=== PATIENT | male | born 1945 ===

== ENCOUNTER → 2021-01-31 | Outpatient (CLI) | payer MEDICARE ==
[~2021-01-31] MED LIST: CYCL10TA2 PO; DULO20CA45 PO; ESCI10TA10 PO; FINA5TAB4 PO; HYDR-2214 PO; TAMS-11 PO
[2021-01-31 09:42] LABS: BASOPHILS % (AUTO) 1 % (0-1); EOSINOPHILS % (AUTO) 3 % (1-7); LYMPHOCYTES % (AUTO) 19 % (22-44); MEAN CORPUSCULAR HEMOGLOBIN 33.6 pg (27.5-34.5); MEAN CORPUSCULAR HGB CONC 34.6 g/dL (33.2-36.2); MEAN PLATELET VOLUME 8.1 fL (7.4-10.4); MONOCYTES % (AUTO) 9 % (2-9); NEUTROPHILS % (AUTO) 67 % (42-75); PLATELET COUNT 174 x10^3/uL (130-400); RED BLOOD COUNT 4.65 x10^6/uL (4.38-5.82); RED CELL DISTRIBUTION WIDTH 13.4 % (9.4-14.8)
[2021-01-31 09:44] LABS: MD NO
[2021-01-31 09:51] LABS: ANION GAP 4 mmol/L (5-15); CALCIUM 9.1 mg/dL (8.5-10.1); CHLORIDE 110 mmol/L (98-107); CREATININE 1.02 mg/dL (0.7-1.3)
[2021-01-31 09:54] LABS: MICROSCOPIC AUTO
[2021-01-31 10:08] LABS: INTERNATIONAL NORMALIZED RATIO 1.04 (0.93-1.1); PROTHROMBIN TIME 11.1 Seconds (9.6-11.5)
== END | disposition home or self-care (01) ==
LOC: STAR 08:24
PROVIDERS: ATTEND Urology
DX: Z01.818 Encounter for other preprocedural examination (principal); N32.89 Other specified disorders of bladder; Z20.822 Contact with and (suspected) exposure to COVID-19
CPT/HCPCS: 36415; 80048; 81001; 85025; 85610; 85730; 87086; 93005; U0003

== ENCOUNTER 2021-02-04 12:31 | Day surgery (SDC) | payer MEDICARE ==
[~2021-02-04] VITALS: Ht 180.3 cm; Wt 77.0 kg
[~2021-02-04 12:31] MED LIST changes: +CEFAZOLIN 1,000 MG ONE; +DEXAMETHASONE 4 MG/ML, 1ML ONE; +GEMCITABINE HCL 1,000 MG in SODIUM CHLORIDE 0.9% 23.7 ML IS ONE; +ONDANSETRON 2MG/ML, 2ML ONE; +PROPOFOL 10 MG/ML, 20ML ONE; +SUCCINYLCHOLINE 20 MG/ML, 10ML ONE
[2021-02-04 12:50] VITALS: BP 142/80
[2021-02-04] MEDS ORDERED: ATOR40TA78 PO (12:56)
[2021-02-04] MEDS ORDERED: CYAN25003 PO (12:56)
[2021-02-04] MEDS ORDERED: MULT-464 PO (12:56)
[2021-02-04] MEDS ORDERED: ZOLP10TA PO (12:56)
[2021-02-04] MEDS ORDERED: CHLORHEXIDINE 15 ML UDC PO ONE (13:00)
[2021-02-04] MEDS ORDERED: LACTATED RINGERS 1,000 ML IV SCH (13:00)
[2021-02-04] MEDS ORDERED: MIDAZOLAM 1 MG/ML, 2ML ONE (13:10)
[2021-02-04] MEDS ORDERED: FENTANYL PF 100 MCG/2ML ONE ×3 (13:10→17:35)
[2021-02-04] MEDS ORDERED: ALBUTEROL SULFATE 2.5 MG/3 ML NPPB PRN (15:30)
[2021-02-04] MEDS ORDERED: MEPERIDINE/PF 25MG/0.5ML IVPush PRN (15:30)
[2021-02-04] MEDS ORDERED: OXYcodone 5 MG/5 ML ORAL.SOL UDC PO PRN (15:30)
[2021-02-04] MEDS ORDERED: LABETALOL 5MG/ML, 20ML IV PRN (15:30)
[2021-02-04] MEDS ORDERED: METOCLOPRAMIDE 5 MG/ML, 2ML IV PRN (15:30)
[2021-02-04] MEDS ORDERED: KETOROLAC 30 MG/1 ML IV PRN (15:30)
[2021-02-04] MEDS ORDERED: ONDANSETRON 2MG/ML, 2ML IVPush PRN (15:30)
[2021-02-04] MEDS ORDERED: DIAZEPAM 5 MG/ML, 2ML IV PRN ×2 (15:30)
[2021-02-04] MEDS ORDERED: PROMETHAZINE 25 MG/ML, 1ML IV PRN (15:30)
[2021-02-04] MEDS ORDERED: hydrALAzine 20 MG/ML, 1ML IV PRN (15:30)
[2021-02-04] MEDS ORDERED: OMNIPAQUE 350 MG/ML, 50 ML BOTTLE IV ONE (15:45)
[2021-02-04] MEDS ORDERED: GEMCITABINE HCL IS ONE (15:46)
[2021-02-04] MEDS ORDERED: OPIUM/BELLADONNA SUPP.RECT 16.2-60 MG ONE (16:09)
[2021-02-04] MEDS ORDERED: OXYcodone 5 MG/5 ML ORAL.SOL UDC ONE (16:47)
[2021-02-04] MEDS: FENTANYL PF 100 MCG/2ML IV PRN ×3 (16:52→17:37)
[2021-02-04] MEDS ORDERED: HYDROmorphone 1 MG/ML, 1ML INJ ONE (17:03)
[2021-02-04] MEDS: HYDROmorphone 1 MG/ML, 1ML INJ IV PRN ×3 (17:06→17:26)
[2021-02-04] MEDS ORDERED: hydrALAzine 20 MG/ML, 1ML ONE (18:49)
== END 2021-02-04 20:30 | disposition home or self-care (01) ==
LOC: OUT 12:31
PROVIDERS: ATTEND Urology
DX: N32.89 Other specified disorders of bladder (principal); C67.4 Malignant neoplasm of posterior wall of bladder; N30.80 Other cystitis without hematuria; N40.1 Benign prostatic hyperplasia with lower urinary tract symptoms; N13.8 Other obstructive and reflux uropathy; Z79.891 Long term (current) use of opiate analgesic; Z79.899 Other long term (current) drug therapy; Z90.49 Acquired absence of other specified parts of digestive tract
CPT/HCPCS: 52204; 52235; 52332; 52354; 74420; 88305; C1758; C1769; C2617; J0330; J0360; J0690; J1100; J1170; J2250; J2405; J2704; J3010; J7120; Q9967; J9201

== ENCOUNTER 2021-04-22 14:17 | Day surgery (SDC) | payer MEDICARE ==
[~2021-04-22] VITALS: Ht 180.3 cm; Wt 76.1 kg
[~2021-04-22 14:17] MED LIST changes: +ATOR40TA78 PO; -CEFAZOLIN 1,000 MG ONE; +CYAN25003 PO; -DEXAMETHASONE 4 MG/ML, 1ML ONE; -GEMCITABINE HCL 1,000 MG in SODIUM CHLORIDE 0.9% 23.7 ML IS ONE; +MULT-464 PO; -ONDANSETRON 2MG/ML, 2ML ONE; -PROPOFOL 10 MG/ML, 20ML ONE; -SUCCINYLCHOLINE 20 MG/ML, 10ML ONE; +ZOLP10TA PO
[2021-04-22 15:27] VITALS: BP 145/86
[2021-04-22] MEDS ORDERED: LACTATED RINGERS 1,000 ML IV SCH (15:30)
[2021-04-22] MEDS ORDERED: CHLORHEXIDINE 15 ML UDC PO ONE (15:30)
[2021-04-22] MEDS ORDERED: PLEASE ENTER HEIGHT AND WEIGHT MC SCH (15:30)
[2021-04-22 15:56] VITALS: BP 145/86
[2021-04-22 15:59] LABS: BASOPHILS % (AUTO) 1 % (0-1); EOSINOPHILS % (AUTO) 1 % (1-7); LYMPHOCYTES % (AUTO) 15 % (22-44); MEAN CORPUSCULAR HEMOGLOBIN 33.5 pg (27.5-34.5); MEAN CORPUSCULAR HGB CONC 34.6 g/dL (33.2-36.2); MEAN PLATELET VOLUME 8.3 fL (7.4-10.4); MONOCYTES % (AUTO) 6 % (2-9); NEUTROPHILS % (AUTO) 77 % (42-75); PLATELET COUNT 175 x10^3/uL (130-400); RED BLOOD COUNT 4.57 x10^6/uL (4.38-5.82); RED CELL DISTRIBUTION WIDTH 13.7 % (9.4-14.8)
[2021-04-22 16:04] LABS: MICROSCOPIC AUTO
[2021-04-22 16:09] LABS: ANION GAP 9 mmol/L (5-15); CHLORIDE 107 mmol/L (98-107); CREATININE 0.99 mg/dL (0.7-1.3)
[2021-04-22] MEDS ORDERED: OMNIPAQUE 350 MG/ML, 50 ML BOTTLE ONE (18:00)
[2021-04-22] MEDS ORDERED: FENTANYL PF 100 MCG/2ML ONE ×3 (18:17→20:23)
[2021-04-22] MEDS ORDERED: MIDAZOLAM 1 MG/ML, 2ML ONE (18:20)
[2021-04-22] MEDS ORDERED: OPIUM/BELLADONNA SUPP.RECT 16.2-60 MG ONE (19:22)
[2021-04-22] MEDS ORDERED: ROCURONIUM 10MG/ML,5ML ONE (19:30)
[2021-04-22] MEDS ORDERED: DEXAMETHASONE 4 MG/ML, 1ML ONE (19:30)
[2021-04-22] MEDS ORDERED: PROPOFOL 10 MG/ML, 20ML ONE (19:30)
[2021-04-22] MEDS ORDERED: SUCCINYLCHOLINE 20 MG/ML, 10ML ONE (19:30)
[2021-04-22] MEDS ORDERED: ONDANSETRON 2MG/ML, 2ML ONE (19:30)
[2021-04-22] MEDS ORDERED: CEFAZOLIN 1,000 MG ONE (19:30)
[2021-04-22] MEDS ORDERED: GLYCOPYRROLATE 0.2MG/1ML, 5ML ONE (19:30)
[2021-04-22] MEDS ORDERED: NEOSTIGMINE 1 MG/ML, 10ML ONE (19:30)
[2021-04-22] MEDS ORDERED: ALBUTEROL SULFATE 2.5 MG/3 ML NPPB PRN (20:00)
[2021-04-22] MEDS ORDERED: PROMETHAZINE 25 MG/ML, 1ML IV PRN (20:00)
[2021-04-22] MEDS ORDERED: HYDROmorphone 2 MG/ML, 1ML IVPush PRN (20:00)
[2021-04-22] MEDS ORDERED: ACETAMINOPHEN 325 MG TABLET PO PRN (20:00)
[2021-04-22] MEDS ORDERED: LABETALOL 5MG/ML, 20ML IV PRN (20:00)
[2021-04-22] MEDS ORDERED: FENTANYL PF 100 MCG/2ML IV PRN (20:00)
[2021-04-22] MEDS ORDERED: OXYcodone 5 MG/5 ML ORAL.SOL UDC PO PRN (20:00)
[2021-04-22] MEDS ORDERED: KETOROLAC 30 MG/1 ML IV PRN (20:00)
[2021-04-22] MEDS ORDERED: MEPERIDINE/PF 25MG/0.5ML IVPush PRN (20:00)
[2021-04-22] MEDS ORDERED: hydrALAzine 20 MG/ML, 1ML IV PRN (20:00)
[2021-04-22] MEDS ORDERED: MEPERIDINE/PF 25MG/ML,1ML ONE (20:00)
[2021-04-22] MEDS ORDERED: DIAZEPAM 5 MG/ML, 2ML IVPush PRN (20:00)
[2021-04-22] MEDS ORDERED: DIAZEPAM 5 MG/ML, 2ML ONE (20:33)
[2021-04-22] MEDS ORDERED: hydrALAzine 20 MG/ML, 1ML ONE (21:30)
== END 2021-04-22 22:20 | disposition home or self-care (01) ==
LOC: OR 14:17
PROVIDERS: ATTEND Urology
DX: N13.1 Hydronephrosis with ureteral stricture, not elsewhere classified (principal); N30.20 Other chronic cystitis without hematuria; N30.80 Other cystitis without hematuria; N40.1 Benign prostatic hyperplasia with lower urinary tract symptoms; N13.8 Other obstructive and reflux uropathy; E78.5 Hyperlipidemia, unspecified; Z79.899 Other long term (current) drug therapy; Z85.51 Personal history of malignant neoplasm of bladder; Z85.46 Personal history of malignant neoplasm of prostate
CPT/HCPCS: 36415; 52235; 52351; 74420; 80048; 81001; 85025; 87086; 88305; 88307; 93005; C1758; C1769; C2617; J0330; J0360; J0690; J1100; J2175; J2250; J2405; J2704; J3010; J3360; J7120; Q9967; J2710